=== PATIENT | male | born 1960 | race Caucasian/White ===

== ENCOUNTER 2016-08-26 07:47 | Emergency (ER) | payer MEDICAID, OTHER ==
[~2016-08-26] VITALS: Ht 182.9 cm; Wt 73.0 kg
[~2016-08-26 07:47] MED LIST: ASPI325T PO; ZOFR4TAB3 SL
[2016-08-26 08:06] VITALS: BP 133/92; PULSE 91; RESP 20; O2SAT 93
[2016-08-26] MEDS ORDERED: SODIUM CHLOR 0.9% 1000 ML INJ 1,000 ML IV ONE (08:19)
--- NOTE | 2016-08-26 08:28 | PD ---
HPI Chief Complaint: Seizure Time Seen by Provider: 08:16 Travel History International Travel<30 days: No Contact w/Intl Traveler<30days: No Traveled to known affect area: No History of Present Illness HPI Patient is a 56-year-old male with history of seizure disorder, alcoholism, COPD , presents to emergency room after a seizure episode. Patient reports that he does not remember the events of last night, reports that he was told that he had history of seizures but was not sure and reports that he currently is not on any medications for seizures. EMS reports that leo called EMS as patient was found at [facility] and [place] having what was described as a "seizure activity," when EMS arrived on scene, patient was post ictal. As per EMS, patient is well known to [facility], reports that he sat down for his first drink and his body started stiffening. Leo was able to bring him to the ground and patient had what was described as a " seizure activity." Pt did not fall to the ground and did not have his first drink yet at bar. Patient does not remember events of this morning.. Patient with no complaints at this time. PFSH Past Medical History Asthma: No Autoimmune Disease: No Anxiety: No Depression: No Heart Rhythm Problems: No Cancer: No High Cholesterol: Yes Chest Pain: No Congestive Heart Failure: No COPD: Yes Cerebrovascular Accident: No Diminished Hearing: No Endocrine: No Gastrointestinal Disorders: No Genitourinary: No Headaches: No Hypertension: Yes (TAKES MEDS) Immune Disorder: No Implanted Vascular Access Dvce: No Musculoskeletal: No Psychiatric: No Reproductive: No Respiratory: Yes Immunizations Current: No Migraines: No Seizures: No Sleep Apnea: No Triglycerides - High: Yes Past Surgical History Abdominal Surgery: Yes (FATTY TUMORS REMOVED FROM STOMACH) Cardiac Surgery: No Ear Surgery: No Endocrine Surgery: No Eye Surgery: No Genitourinary Surgery: No Gynecologic Surgery: No Neurologic Surgery: No Oral Surgery: No Pacemaker: No Thoracic Surgery: No Other Surgery: Yes (RIGHT THUMB SURGERY (FIX LIGAMENTS, ETC)) Social History Alcohol Use: Yes (3 MIXED DRINKS DAILY) Tobacco Use: Yes (1 PPD) Substance Use: No Allergies-Medications (Allergen,Severity, Reaction): Uncoded Allergies: seasonal allergies (Allergy, Mild, Sneezing, 11/22/13) cough Reported Meds & Prescriptions Reported Meds & Active Scripts Active No Active Prescriptions or Reported Medications Review of Systems General / Constitutional: No: Fever Eyes: No: Visual changes HENT: No: Headaches Cardiovascular: No: Chest Pain or Discomfort Respiratory: No: Shortness of Breath Gastrointestinal: No: Abdominal Pain Genitourinary: No: Dysuria Musculoskeletal: No: Pain Skin: No Rash Neurologic: Positive: Seizures, No: Weakness Psychiatric: No: Depression Endocrine: No: Polydipsia Hematologic/Lymphatic: No: Easy Bruising Physical Exam Narrative GENERAL: No acute distress, nontoxic SKIN: Warm and dry. HEAD: Atraumatic. Normocephalic. EYES: Pupils equal and round. No scleral icterus. No injection or drainage. ENT: No nasal bleeding or discharge. Mucous membranes pink and moist. NECK: Trachea midline. No JVD. CARDIOVASCULAR: Regular rate and rhythm. No murmur appreciated. RESPIRATORY: No accessory muscle use. Clear to auscultation. Breath sounds equal bilaterally. GASTROINTESTINAL: Abdomen soft, non-tender, nondistended. Hepatic and splenic margins not palpable. MUSCULOSKELETAL: No obvious deformities. No clubbing. No cyanosis. No edema. NEUROLOGICAL: Awake and alert. No obvious cranial nerve deficits. Motor grossly within normal limits. Normal speech. PSYCHIATRIC: Appropriate mood and affect; insight and judgment normal. Data Data Last Documented VS Vital Signs Date Time Temp Pulse Resp B/P Pulse Ox O2 Delivery O2 Flow Rate FiO2 08/26/16 08:45 98.3 20 96 Room Air 08/26/16 08:06 91 133/92 Orders Complete Blood Count With Diff (08/26/16 08:19) Alcohol (Ethanol) (08/26/16 08:19) Drug Screen, Random Urine (08/26/16 08:19) Electrocardiogram (08/26/16 ) Ct Brain W/O Iv Contrast(Rout) (08/26/16 ) Blood Glucose (08/26/16 08:19) Ecg Monitoring (08/26/16 08:19) Iv Access Insert/Monitor (08/26/16 08:19) Oximetry (08/26/16 08:19) Comprehensive Metabolic Panel (08/26/16 08:19) Sodium Chlor 0.9% 1000 Ml Inj (Ns 1000 M (08/26/16 08:19) Sodium Chloride 0.9% Flush (Ns Flush) (08/26/16 08:30) Thiamine Inj (Thiamine Inj) (08/26/16 08:30) Ua Includes Microscopic (08/26/16 08:19) Lorazepam Inj (Ativan Inj) (08/26/16 08:45) Labs Laboratory Tests Test 08/26/16 08:25 White Blood Count 9.3 TH/MM3 Red Blood Count 3.94 MIL/MM3 Hemoglobin 12.5 GM/DL Hematocrit 36.4 % Mean Corpuscular Volume 92.6 FL Mean Corpuscular Hemoglobin 31.7 PG Mean Corpuscular Hemoglobin 34.2 % Concent Red Cell Distribution Width 14.5 % Platelet Count 292 TH/MM3 Mean Platelet Volume 6.6 FL Neutrophils (%) (Auto) 68.1 % Lymphocytes (%) (Auto) 18.0 % Monocytes (%) (Auto) 11.2 % Eosinophils (%) (Auto) 1.8 % Basophils (%) (Auto) 0.9 % Neutrophils # (Auto) 6.3 TH/MM3 Lymphocytes # (Auto) 1.7 TH/MM3 Monocytes # (Auto) 1.0 TH/MM3 Eosinophils # (Auto) 0.2 TH/MM3 Basophils # (Auto) 0.1 TH/MM3 CBC Comment DIFF FINAL Differential Comment Sodium Level 135 MEQ/L Potassium Level 4.2 MEQ/L Chloride Level 102 MEQ/L Carbon Dioxide Level 25.3 MEQ/L Anion Gap 8 MEQ/L Blood Urea Nitrogen 7 MG/DL Creatinine 0.88 MG/DL Estimat Glomerular Filtration 89 ML/MIN Rate Random Glucose 105 MG/DL Calcium Level 8.7 MG/DL Total Bilirubin 0.3 MG/DL Aspartate Amino Transf 13 U/L (AST/SGOT) Alanine Aminotransferase 14 U/L (ALT/SGPT) Alkaline Phosphatase 146 U/L Total Protein 6.7 GM/DL Albumin 3.3 GM/DL Ethyl Alcohol Level LESS THAN 3 MG/DL MDM Medical Decision Making Medical Screen Exam Complete: Yes Emergency Medical Condition: Yes Interpretation(s) EKG at 905: Normal sinus rhythm at 75 beats for minute, QT/QTC 373/[address] or T-wave changes Vital Signs Date Time Temp Pulse Resp B/P Pulse Ox O2 Delivery O2 Flow Rate FiO2 08/26/16 08:06 91 20 133/[address] 08/26/16 0000 Signed Impressions: Service Date/Time: Thursday, August 26, 2016 09:22 - CONCLUSION: No acute disease. Eva Garcia MD Laboratory Tests Test 08/26/16 08:25 White Blood Count 9.3 TH/MM3 (4.0-11.0) Red Blood Count 3.94 MIL/MM3 (4.50-5.90) Hemoglobin 12.5 GM/DL (13.0-17.0) Hematocrit 36.4 % (39.0-51.0) Mean Corpuscular Volume 92.6 FL (80.0-100.0) Mean Corpuscular Hemoglobin 31.7 PG (27.0-34.0) Mean Corpuscular Hemoglobin 34.2 % Concent (32.0-36.0) Red Cell Distribution Width 14.5 % (11.6-17.2) Platelet Count 292 TH/MM3 (150-450) Mean Platelet Volume 6.6 FL (7.0-11.0) Neutrophils (%) (Auto) 68.1 % (16.0-70.0) Lymphocytes (%) (Auto) 18.0 % (9.0-44.0) Monocytes (%) (Auto) 11.2 % (0.0-8.0) Eosinophils (%) (Auto) 1.8 % (0.0-4.0) Basophils (%) (Auto) 0.9 % (0.0-2.0) Neutrophils # (Auto) 6.3 TH/MM3 (1.8-7.7) Lymphocytes # (Auto) 1.7 TH/MM3 (1.0-4.8) Monocytes # (Auto) 1.0 TH/MM3 (0-0.9) Eosinophils # (Auto) 0.2 TH/MM3 (0-0.4) Basophils # (Auto) 0.1 TH/MM3 (0-0.2) CBC Comment DIFF FINAL Differential Comment Sodium Level 135 MEQ/L (136-145) Potassium Level 4.2 MEQ/L (3.5-5.1) Chloride Level 102 MEQ/L (98-107) Carbon Dioxide Level 25.3 MEQ/L (21.0-32.0) Anion Gap 8 MEQ/L (5-15) Blood Urea Nitrogen 7 MG/DL (7-18) Creatinine 0.88 MG/DL (0.60-1.30) Estimat Glomerular Filtration 89 ML/MIN (>89) Rate Random Glucose 105 MG/DL (74-106) Calcium Level 8.7 MG/DL (8.5-10.1) Total Bilirubin 0.3 MG/DL (0.2-1.0) Aspartate Amino Transf 13 U/L (15-37) (AST/SGOT) Alanine Aminotransferase 14 U/L (12-78) (ALT/SGPT) Alkaline Phosphatase 146 U/L (45-117) Total Protein 6.7 GM/DL (6.4-8.2) Albumin 3.3 GM/DL (3.4-5.0) Ethyl Alcohol Level LESS THAN 3 MG/DL (0-5) Differential Diagnosis Seizure, arrhythmia, alcohol withdrawal seizure, hypoglycemia, electrolyte abnormality, intracranial hemorrhage, ACS Narrative Course Patient is a 56-year-old male who presents to emergency room with EMS after reports of seizure activity. Patient reports that he does not remember events of this morning. Bystander called EMS as patient was seen actively having a seizure, patient was post ictal upon arrival on scene. Patient currently alert and oriented times 3, patient with history of alcohol abuse with questionable seizures from alcohol abuse. Patient currently not on any medications at this time, will obtain CT of the head as it is unknown if patient had fall. CBC, BMP, EKG and x-ray chest ordered for further evaluation symptoms. We'll give patient IV fluids and observe him. CBC: wnl BMP: wnl etoh: less than 3 ct head: Last Impressions Head CT 08/26/16 0000 Signed Impressions: Service Date/Time: August 09:22 - CONCLUSION: No acute disease. Eva Garcia MD Patient with most likely seizure versus alcohol withdrawal seizure, discussed with patient need to follow up with his primary care doctor and return to his needed. Patient reevaluated, patient reports that he is feeling better, patient with no complaints at this time. Patient will be discharged home with instructions stop his primary care doctor Diagnosis Primary Impression: Seizure Additional Impressions: Alcoholism /alcohol abuse Anemia Qualified Code: D64.9 - Anemia, unspecified type Patient Instructions: General Instructions Additional Instructions: Please stop drinking, please return to ER as needed Please follow-up with the primary care doctor as soon as possible. Scripts No Active Prescriptions or Reported Meds Disposition: DISCHARGE HOME Amanda Otoole DO Aug 26, 2016 08:28
[2016-08-26] MEDS ORDERED: SODIUM CHLORIDE 0.9% FLUSH 5 ML FLUSH IVF PRN (08:30)
[2016-08-26] MEDS ORDERED: THIAMINE INJ 100 MG in SODIUM CHLORIDE 0.9% INJ 100 ML IV ONE (08:30)
[2016-08-26 08:39] LABS: AUTOMATED NEUTROPHIL # 6.3 TH/MM3 (1.8-7.7); BASOPHIL # 0.1 TH/MM3 (0-0.2); BASOPHIL % 0.9 % (0.0-2.0); EOSINOPHIL # 0.2 TH/MM3 (0-0.4); EOSINOPHIL % 1.8 % (0.0-4.0); HEMATOCRIT 36.4 % (39.0-51.0); HEMO FLAGS DIFF FINAL; LYMPHOCYTE # 1.7 TH/MM3 (1.0-4.8); MEAN CELL VOLUME 92.6 FL (80.0-100.0); MEAN CORPUSCULAR HEMOGLOBIN 31.7 PG (27.0-34.0); MEAN CORPUSCULAR HGB CONC 34.2 % (32.0-36.0); MONO % 11.2 % (0.0-8.0); NEUT % 68.1 % (16.0-70.0); PLATELET COUNT 292 TH/MM3 (150-450); RED BLOOD COUNT 3.94 MIL/MM3 (4.50-5.90); RED CELL DISTRIBUTION WIDTH 14.5 % (11.6-17.2); WHITE BLOOD COUNT 9.3 TH/MM3 (4.0-11.0)
[2016-08-26 08:45] VITALS: RESP 20; TEMP 98.3; O2SAT 96
[2016-08-26] MEDS ORDERED: LORazepam 2 MG/ML VIAL IV PUSH ONE (08:45)
[2016-08-26 08:52] LABS: ALT (GPT) 14 U/L (12-78); ANION GAP 8 MEQ/L (5-15); AST (GOT) 13 U/L (15-37); BICARBONATE 25.3 MEQ/L (21.0-32.0); BLOOD UREA NITROGEN 7 MG/DL (7-18); CHLORIDE 102 MEQ/L (98-107); GLOMERULAR FILTRATION RATE 89 ML/MIN (>89); POTASSIUM 4.2 MEQ/L (3.5-5.1); SODIUM (NA) 135 MEQ/L (136-145)
[2016-08-26 08:54] LABS: ALKALINE PHOSPHATASE 146 U/L (45-117); TOTAL BILIRUBIN ADULT 0.3 MG/DL (0.2-1.0)
--- NOTE | 2016-08-26 09:30 | RADRPT ---
EXAM DATE/TIME: 08/26/2016 09:22 [facility] COMPARISON: MRI BRAIN W & W/O CONTRAST, January 13, 2015, 13:19. CT BRAIN W/O CONTRAST, May 25, 2016, 10:03. INDICATIONS : Syncopal episode RADIATION DOSE: 46.47 CTDIvol (mGy) MEDICAL HISTORY : Hypertension. Sarcoma. SURGICAL HISTORY : None. ENCOUNTER: Initial ACUITY: 1 day PAIN SCALE: 0/10 LOCATION: cranial TECHNIQUE: Multiple contiguous axial images were obtained of the head. Using automated exposure control and adj ustment of the mA and/or kV according to patient size, radiation dose was kept as low as reasonably a chievable to obtain optimal diagnostic quality images. FINDINGS: CEREBRUM: Stable mild asymmetry of the left ventricle secondary to stable mild atrophy adjacent to the posterio r horn of the left ventricle. This is unchanged as compared to multiple prior exams. No evidence of m idline shift, mass lesion, hemorrhage or acute infarction. No extra-axial fluid collections are seen . POSTERIOR FOSSA: The cerebellum and brainstem are intact. The 4th ventricle is midline. The cerebellopontine angle i s unremarkable. EXTRACRANIAL: The visualized portion of the orbits is intact. SKULL: The calvaria is intact. No evidence of skull fracture. CONCLUSION: No acute disease. Eva Garcia MD on August 26, 2016 at 9:26 Board Certified Radiologist. This report was verified electronically.
[2016-08-26 11:28] VITALS: BP 157/86; PULSE 75; RESP 20; TEMP 98.2
[2016-08-26 12:01] VITALS: BP 118/75
--- NOTE | 2016-08-26 19:34 | EKG ---
Date Performed: 08/26/2016 Time Performed: 09:05:10 PTAGE: 56 years EKG: Sinus rhythm Compared to prior tracing no significant change NORMAL ECG PREVIOUS TRACING : 05/25/2016 07.31 DOCTOR: Hunter Manzano Interpretating Date/Time 08/26/2016 19:32:55
[2016-09-24] MEDS ORDERED: ORAL0.1P OROPHARYNG (10:11)
[2016-09-24] MEDS ORDERED: LEVE500T8 PO ×2 (10:56→11:16)
[2016-09-24] MEDS ORDERED: MULTTAB23 PO (10:56)
[2016-09-24] MEDS ORDERED: ALBUAER3 INH (11:16)
== END 2016-08-26 13:45 | disposition home or self-care (01) ==
LOC: NEPE 07:47
DX: R56.9 Unspecified convulsions (principal); D64.9 Anemia, unspecified; E78.00 Pure hypercholesterolemia, unspecified; J44.9 Chronic obstructive pulmonary disease, unspecified; I10 Essential (primary) hypertension; F17.210 Nicotine dependence, cigarettes, uncomplicated; F10.10 Alcohol abuse, uncomplicated
CPT/HCPCS: 70450; 80053; 80320; 85025; 93005; 96365; 96375; 99284; J2060; J3411; J7030

== ENCOUNTER → 2016-09-24 | Outpatient (CLI) | payer MEDICAID, OTHER ==
[~2016-09-24] MED LIST changes: +ALBUAER3 INH; -ASPI325T PO; +LEVE500T8 PO; +MULTTAB23 PO; +ORAL0.1P OROPHARYNG; -ZOFR4TAB3 SL
[2016-09-24 08:21] LABS: HEMATOCRIT 40.8 % (39.0-51.0); MEAN CELL VOLUME 93.5 FL (80.0-100.0); MEAN CORPUSCULAR HEMOGLOBIN 31.5 PG (27.0-34.0); MEAN CORPUSCULAR HGB CONC 33.6 % (32.0-36.0); PLATELET COUNT 316 TH/MM3 (150-450); RED BLOOD COUNT 4.36 MIL/MM3 (4.50-5.90); RED CELL DISTRIBUTION WIDTH 13.8 % (11.6-17.2); REVIEW FLAG FINAL; WHITE BLOOD COUNT 9.3 TH/MM3 (4.0-11.0)
[2016-09-24 08:34] LABS: BLOOD, URINE NEG (NEG); GLUCOSE,URINE NEG (NEG); KETONE, URINE 10 mg/dL (NEG); NITRITE,URINE NEG (NEG); PH, URINE 6.5 (5.0-8.5); URINE COLOR YELLOW (YELLW/STRAW)
[2016-09-24 08:45] LABS: COMMENT (UR) CULT NOT INDICATED; CULTURE IF INDICATED CULT NOT INDICATED
[2016-09-24 08:50] LABS: ALT (GPT) 13 U/L (12-78); ANION GAP 11 MEQ/L (5-15); AST (GOT) 14 U/L (15-37); BICARBONATE 23.1 MEQ/L (21.0-32.0); BLOOD UREA NITROGEN 14 MG/DL (7-18); CHLORIDE 100 MEQ/L (98-107); GLOMERULAR FILTRATION RATE 103 ML/MIN (>89); GLUCOSE,FASTING 76 MG/DL (74-99); POTASSIUM 4.2 MEQ/L (3.5-5.1); SODIUM (NA) 134 MEQ/L (136-145)
[2016-09-24 08:59] LABS: ALKALINE PHOSPHATASE 177 U/L (45-117); HDL CHOLESTEROL 48.2 MG/DL (40.0-60.0); LDL CHOLESTEROL 84 MG/DL (0-99); TOTAL BILIRUBIN ADULT 0.6 MG/DL (0.2-1.0)
== END ==
LOC: CLAB 07:46
PROVIDERS: ATTEND Physician Assistant Medical
DX: F10.10 Alcohol abuse, uncomplicated (principal); S12.600A Unspecified displaced fracture of seventh cervical vertebra, initial encounter for closed fracture; G40.909 Epilepsy, unspecified, not intractable, without status epilepticus; Z72.0 Tobacco use; X58.XXXA Exposure to other specified factors, initial encounter
CPT/HCPCS: 36415; 80053; 80061; 81001; 84443; 85027